=== PATIENT | female | born 1975 | race Caucasian/White ===

== ENCOUNTER 2017-10-18 21:56 | Observation (INO) | payer BC ==
--- NOTE | 2017-10-19 | EKG REPORT ---
SEVERITY:- BORDERLINE ECG - SINUS RHYTHM PROBABLE LEFT ATRIAL ABNORMALITY BORDERLINE INFERIOR Q WAVES : Confirmed by: Carlene Iyer 18-Oct-2017 23:59:47
[2017-10-19] MEDS ORDERED: ASPIRIN 81 MG TABLET, CHEWABLE PO ONE (00:17)
--- NOTE | 2017-10-19 00:20 | ER Document Report ---
ED Medical Screen (RME) - General Chief Complaint: Chest Pain Stated Complaint: CHEST PAIN Time Seen by Provider: 10/19/17 00:16 Mode of Arrival: Ambulatory Information source: Patient Notes: 42-year-old female presents to ED for sore throat cough and shortness of breath and chest pain. She states she has had a cold for a few days today she felt like her throat was closing up. She was having trouble breathing and having chest pain up to her left side of her chest up into her throat and jaw. She states she had a AR last year and had a heart cath. She states she was told she had a slight blockage but that the main problem was her arteries were spasming causing a clot. She was seen in our ER and sent to [facility] where she had a heart cath. I have greeted and performed a rapid initial assessment of this patient. A comprehensive ED assessment and evaluation of the patient, analysis of test results and completion of medical decision making process will be conducted by an additional ED providers. TRAVEL OUTSIDE OF THE [place] IN LAST 30 DAYS: No - Related Data Allergies/Adverse Reactions: morphine [Morphine] Adverse Reaction (Verified 09/15/16 13:51) Past Medical History - Past Medical History Cardiac Medical History: Reports: Hx Hypercholesterolemia Pulmonary Medical History: Reports: Hx Asthma Neurological Medical History: Reports: Hx Migraine Endocrine Medical History: Reports: Hx Diabetes Mellitus Type 2 - borderline, pre- Renal/ Medical History: Reports: Hx Kidney Stones Past Surgical History: Reports: Hx Appendectomy - 2009, Hx Cholecystectomy - 1999, Hx Nose Surgery - age 16 (sinus), Hx Tubal Ligation - 1999 - Immunizations Hx Diphtheria, Pertussis, Tetanus Vaccination: Yes Physical Exam - Vital signs Vitals: Temp Pulse Resp BP Pulse Ox 98.2 F 80 16 154/78 H 100 10/18/17 22:26 10/18/17 22:26 10/18/17 22:26 10/18/17 22:26 10/18/17 22:26 Course - Vital Signs Vital signs: Temp Pulse Resp BP Pulse Ox 98.2 F 80 16 154/78 H 100 10/18/17 22:26 10/18/17 22:26 10/18/17 22:26 10/18/17 22:26 10/18/17 22:26
--- NOTE | 2017-10-19 00:59 | ER Document Report ---
ED General - General Chief Complaint: Chest Pain Stated Complaint: CHEST PAIN Time Seen by Provider: 10/19/17 00:16 Mode of Arrival: Ambulatory Notes: Patient is a 42-year-old female presents with complaint of chest tightness. Patient says over last 2 days she has had some runny nose cough and congestion. She says that today she suddenly started having a sensation of tightness at the base of her throat and felt as if she was having hard time getting air through her throat. She also had some chest tightness going into her left arm. She said she had somewhat similar symptoms a year ago when she had an [place]. Her troponins at that time were elevated and she was sent to [facility]. There they did a heart catheterization which showed that she was having coronary vasospasm. She did not require stenting at that time. She is currently on isosorbide. She says that she did run out of it earlier in the week. She says she got the prescription refilled about 2 days ago and has been taking at the last 2 days. She denies any fevers or infections. She said when her symptoms did occur earlier today her blood pressure was elevated but her blood pressure has improved now. She has no other complaints at this time. She says that she is supposed to be followed by the clinical sciences professor at [facility] but she has not seen seeing them in last several months. She says she did follow-up with them a few times after her hospitalization last year but this did not make her recent appointment that she was supposed to make. TRAVEL OUTSIDE OF THE [place] IN LAST 30 DAYS: No - Related Data Allergies/Adverse Reactions: morphine [Morphine] Adverse Reaction (Verified 09/15/16 13:51) Past Medical History - General Information source: Patient - Social History Smoking Status: Former Smoker Frequency of alcohol use: None Drug Abuse: None Family History: Reviewed & Not Pertinent, CAD - grandmother- [place] at age 40 Patient has suicidal ideation: No Patient has homicidal ideation: No - Past Medical History Cardiac Medical History: Reports: Hx Hypercholesterolemia Pulmonary Medical History: Reports: Hx Asthma Neurological Medical History: Reports: Hx Migraine Endocrine Medical History: Reports: Hx Diabetes Mellitus Type 2 - borderline, pre- Renal/ Medical History: Reports: Hx Kidney Stones. Denies: Hx Peritoneal Dialysis Past Surgical History: Reports: Hx Appendectomy - 2009, Hx Cholecystectomy - 2000, Hx Nose Surgery - age 16 (sinus), Hx Tubal Ligation - 2000 - Immunizations Hx Diphtheria, Pertussis, Tetanus Vaccination: Yes Review of Systems - Review of Systems Notes: My Normal Review Basic REVIEW OF SYSTEMS: CONSTITUTIONAL : Denies fever, chills, or sweats. Denies recent illness. EENT: Sensation of tightness in throat. CARDIOVASCULAR: Chest tightness radiating down left arm. RESPIRATORY: Denies cough, cold, or chest congestion. Denies shortness of breath, difficulty breathing, or wheezing. GASTROINTESTINAL: Denies abdominal pain. Denies nausea, vomiting, or diarrhea. Denies constipation. Last BM: MUSCULOSKELETAL: Denies neck or back pain or joint pain or swelling. SKIN: Denies rash or skin lesions. NEUROLOGICAL: Denies altered mental status or loss of consciousness. Denies headache. Denies weakness or paralysis or loss of use of either side. Denies problems with gait or speech. Denies sensory or motor loss. ALL OTHER SYSTEMS REVIEWED AND NEGATIVE. Physical Exam - Vital signs Vitals: Temp Pulse Resp BP Pulse Ox 98.2 F 80 16 154/78 H 100 10/18/17 22:26 10/18/17 22:26 10/18/17 22:26 10/18/17 22:26 10/18/17 22:26 - Notes Notes: General Appearance: Well nourished, alert, cooperative, no acute distress, no obvious discomfort. Well-appearing. Vitals: reviewed, See vital signs table. Head: no swelling or tenderness to the head Eyes: PERRL, EOMI, Conjuctiva clear Mouth: No decreasd moisture Throat: Normal-appearing pharynx on exam. Neck: Supple, no neck tenderness, Lungs: No wheezing, No rales, No rhonci, No accessory muscle use, good air exchange bilaterally. Heart: Normal rate, Regular rythm, No murmur, no rub Abdomen: Normal BS, soft, No rigidity, No abdominal tenderness, No guarding, no rebound, no abdominal masses, no organomegaly Extremities: strength 5/5 in all extremities, good pulses in all extremities, no swelling or tenderness in the extremities, no edema. Skin: warm, dry, appropriate color, no rash Neuro: speech clear, oriented x 3, normal affect, responds appropriately to questions. Course - Re-evaluation Re-evalutation: 10/19/17 04:16 Patient's chest pain did resolve with the Nitropaste. I ordered a repeat troponin and took off the Nitropaste to see if she would have recurrence chest pain. Patient now started having recurrence of her chest pain. I will do repeat EKG and reapply the Nitropaste. Repeat troponin is pending. 10/19/17 04:47 Patient is now started feel better again after reapplying the Nitropaste. I did speak with the hospitalist requested this case case with clinical sciences professor. I did speak with Dr. Rodriguez who recommends we give the patient 2.5 mg of [address] and place her on a low-dose Cardizem drip. I have ordered this. I did inform Dr. Bryant of the clinical sciences professor recommendations. We will admit the patient for observation. My concern of course is that even though she does have some cold- like symptoms I suspect that the chest tightness difficulty breathing and tightness going down her arm most likely is related to coronary vessel spasm being that she had the same symptoms a year ago and also that her symptoms are improved with the nitro. At this time she has no signs of infarction; however, my concern is if we sent her home without Nitropaste and her symptoms progress she would have infarction like she did 1 year ago. I did explain the plan with the patient and she is agreeable to staying. Dictation of this chart was performed using voice recognition software; therefore, there may be some unintended grammatical errors. - Vital Signs Vital signs: Temp Pulse Resp BP Pulse Ox 98.2 F 80 12 98/62 L 98 10/18/17 22:26 10/18/17 22:26 10/19/17 03:01 10/19/17 03:00 10/19/17 03:01 - Laboratory Result Diagrams: 10/19/17 00:50 10/19/17 00:50 Laboratory results interpreted by me: 10/19/17 10/19/17 00:50 00:50 WBC 11.0 H Seg Neutrophils % 81.1 H Absolute Neutrophils 8.9 H Glucose 123 H - EKG Interpretation by Me Additional EKG results interpreted by me: 10/19/17 00:58 EKG is reviewed and interpreted by me. EKG shows sinus rhythm with rate [address] segment elevation or depression. No ischemic T-wave inversions. AR interval, QRS duration, QTc intervals are within normal range. No old EKG available for comparison. 10/19/17 01:31 10/19/17 04:27 EKG #2 is reviewed and interpreted by me. EKG shows sinus rhythm with rate [address] segment elevation or depression. No ischemic T-wave inversions. AR interval, QRS duration, QTc intervals are within normal range. Discharge - Discharge Clinical Impression: Chest pain Qualifiers: Chest pain type: unspecified Qualified Code(s): R07.9 - Chest pain, unspecified Condition: Stable Disposition: ADMITTED OBSERVATION Admitting Provider: Hospitalist
[2017-10-19 01:10] LABS: ABSOLUTE BASOPHILS # (AUTO) 0.1 10^3/uL (0.0-0.2); ABSOLUTE EOSINOPHILS # (AUTO) 0.1 10^3/uL (0.0-0.6); ABSOLUTE LYMPHOCYTES (AUTO) 1.5 10^3/uL (0.5-4.7); ABSOLUTE MONOCYTES (AUTO) 0.5 10^3/uL (0.1-1.4); ABSOLUTE NEUT (AUTO) 8.9 10^3/uL (1.7-8.2); BASOPHILS % (AUTO) 0.5 % (0-2); EOSINOPHILS % (AUTO) 0.7 % (0-6); HEMATOCRIT 40.2 % (36.0-47.0); HEMOGLOBIN 13.6 g/dL (12.0-15.5); HGB HCT DIFFERENCE 0.6; LYMPHOCYTES % (AUTO) 13.3 % (13-45); MEAN CORPUSCULAR HGB CONC 33.8 g/dL (32.0-36.0); MEAN CORPUSCULAR VOLUME 89 fl (80-97); MONOCYTES % (AUTO) 4.4 % (3-13); RED BLOOD COUNT 4.54 10^6/uL (3.72-5.28); RED CELL DISTRIBUTION WIDTH 13.5 % (11.5-14.0); SEGMENTED NEUTROPHILS % (AUTO) 81.1 % (42-78)
[2017-10-19] MEDS ORDERED: NITROGLYCERIN 2% OINTMENT 1 GM PACKET TP ONE ×2 (01:27→04:12)
[2017-10-19 01:41] LABS: ALANINE AMINOTRANSFERASE 35 U/L (9-52); ALBUMIN 4.5 g/dL (3.5-5.0); ALKALINE PHOSPHATASE 97 U/L (38-126); ANION GAP 14 (5-19); ASPARTATE AMINO TRANSFERASE 30 U/L (14-36); BILIRUBIN,DIRECT 0.4 mg/dL (0.0-0.4); BILIRUBIN,TOTAL 0.5 mg/dL (0.2-1.3); BLOOD UREA NITROGEN 11 mg/dL (7-20); CALCIUM 10.1 mg/dL (8.4-10.2); CARBON DIOXIDE 26 mmol/L (22-30); CHLORIDE 103 mmol/L (98-107); CREATINE KINASE 94 U/L (30-135); CREATININE RESULT 0.76 mg/dL (0.52-1.25); GLUCOSE 123 mg/dL (75-110); POTASSIUM 4.2 mmol/L (3.6-5.0); SODIUM 142.6 mmol/L (137-145); TOTAL PROTEIN 7.4 g/dL (6.3-8.2)
--- NOTE | 2017-10-19 01:41 | RADIOLOGY REPORT (SQ) ---
EXAM DESCRIPTION: CHEST PA/LAT CLINICAL HISTORY: 42 years, Female, chest pain cough hx of [place] year ago COMPARISON: None. NUMBER OF VIEWS: 2. TECHNIQUE: PA and lateral. LIMITATIONS: None. FINDINGS: Adequate lung volumes, clear parenchyma, normal cardiac silhouette. Intact bony thorax. Right upper abdominal clips. IMPRESSION: No acute cardiopulmonary findings. 2011 [employer]- All Rights Reserved
[2017-10-19 01:51] LABS: CREATINE KINASE MB 0.97 ng/mL (<4.55)
[2017-10-19 02:00] LABS: TROPONIN I < 0.012 ng/mL
[2017-10-19] MEDS ORDERED: MAG HYDROX/AL HYDROX/SIMETH SUSP 30 ML UDCUP PO PRN (04:44)
[2017-10-19] MEDS ORDERED: DILTIAZEM HCL INJ 25 MG/5 ML VIAL IV ONE (04:44)
[2017-10-19] MEDS ORDERED: DILTIAZEM HCL/D5W 125 MG/125 ML RTUINJ IV PRN (05:07)
[2017-10-19 05:31] LABS: CHOLESTEROL 193.17 mg/dL (0-200); CREATINE KINASE 83 U/L (30-135); Direct HDL 70 mg/dL (>40); TRIGLYCERIDES 56 mg/dL (<150)
[2017-10-19 05:42] LABS: DIRECT LDL 108 mg/dL (<100)
[2017-10-19 05:43] LABS: CREATINE KINASE MB 0.87 ng/mL (<4.55)
[2017-10-19 05:51] LABS: TROPONIN I < 0.012 ng/mL
[2017-10-19] MEDS ORDERED: CALCIUM CARBONATE 500 MG TAB.CHEW PO PRN (06:41)
--- NOTE | 2017-10-19 06:56 | PDOC H&P ---
History of Present Illness Admission Date/PCP: 10/19/17 04:59 Patient complains of: Chest pain History of Present Illness: ANIBAL DURAN is a 42 year old female with a past medical history of prediabetes, chronic back pain, allergic sinusitis and coronary vasospasm with negative cardiac catheterization 1 year ago. Patient presents with 4 hours of chest tightness radiating to the neck throat and left arm which reminded her of symptoms from a non-ST elevation [place] from coronary vasospasm 1 year ago, which prompts evaluation in the emergency room where she is found to have chest pain alleviated by Nitropaste. Her pain was 3 out of 5 intensity occurring at rest, dull in nature radiating to the neck and left arm associated with palpitations without nausea vomiting or diaphoresis. She denies exacerbating factors, alleviated by Nitropaste. Patient admits change from Zyrtec to Nimco today. In the emergency room she has an unremarkable workup EKG is unchanged, Nitropaste removal results in return of chest pain. Cardiology is consulted recommending addition of IV Cardizem. She is referred to the hospitalist for observation. Past Medical History Cardiac Medical History: Reports: Hyperlipidema, Other - Coronary artery vasospasm Pulmonary Medical History: Reports: Asthma Neurological Medical History: Reports: Migraine Endocrine Medical History: Reports: Diabetes Mellitus Type 2 - borderline, pre- GI Medical History: Reports: Gastroesophageal Reflux Disease Psychiatric Medical History: Denies: Alcohol Dependency, Bipolar Disorder, Depression, Tobacco Dependency Past Surgical History Past Surgical History: Reports: Appendectomy - 2009, Cardiac Catheterization, Cholecystectomy - 1999, Tubal Ligation - 1999 Social History Information Source: Patient Smoking Status: Former Smoker Frequency of Alcohol Use: None Hx Recreational Drug Use: No Drugs: None - Advance Directive Resuscitation Status: Full Code Family History Family History: CAD - grandmother- [place] at age 40 Parental Family History Reviewed: Yes Children Family History Reviewed: Yes Sibling(s) Family History Reviewed.: Yes Medication/Allergy Home Medications: Hydrocodone/Acetaminophen [[place] 5-325 mg Tablet] 1 tab PO Q4HP PRN #12 tablet 06/02/16 Phenazopyridine HCl [Pyridium 200 mg Tablet] 200 mg PO TID #15 tablet 06/02/16 Oxycodone HCl/Acetaminophen [Percocet 5-325 mg Tablet] 1 - 2 tab PO Q4H PRN #15 tablet 07/17/16 Allergies/Adverse Reactions: morphine [Morphine] Adverse Reaction (Verified 09/15/16 13:51) Review of Systems Constitutional: ABSENT: chills, fever(s), headache(s), weight gain, weight loss Eyes: ABSENT: visual disturbances Ears: ABSENT: hearing changes Cardiovascular: ABSENT: chest pain, dyspnea on exertion, edema, orthropnea, palpitations Respiratory: ABSENT: cough, hemoptysis Gastrointestinal: ABSENT: abdominal pain, constipation, diarrhea, hematemesis, hematochezia, nausea, vomiting Genitourinary: ABSENT: dysuria, hematuria Musculoskeletal: ABSENT: joint swelling Integumentary: ABSENT: rash, wounds Neurological: ABSENT: abnormal gait, abnormal speech, confusion, dizziness, focal weakness, syncope Psychiatric: ABSENT: anxiety, depression, homidical ideation, suicidal ideation Endocrine: ABSENT: cold intolerance, heat intolerance, polydipsia, polyuria Hematologic/Lymphatic: ABSENT: easy bleeding, easy bruising Physical Exam Vital Signs: Temp Pulse Resp BP Pulse Ox 98.2 F 80 11 L 105/67 96 10/18/17 22:26 10/18/17 22:26 10/19/17 06:15 10/19/17 06:15 10/19/17 06:15 General appearance: PRESENT: no acute distress, well-developed, well-nourished Head exam: PRESENT: atraumatic, normocephalic Eye exam: PRESENT: conjunctiva pink, EOMI, PERRLA. ABSENT: scleral icterus Ear exam: PRESENT: normal external ear exam Mouth exam: PRESENT: moist, tongue midline Neck exam: ABSENT: carotid bruit, JVD, lymphadenopathy, thyromegaly Respiratory exam: PRESENT: clear to auscultation romario. ABSENT: rales, rhonchi, wheezes Cardiovascular exam: PRESENT: RRR. ABSENT: diastolic murmur, rubs, systolic murmur Pulses: PRESENT: normal dorsalis pedis pul Vascular exam: PRESENT: normal capillary refill GI/Abdominal exam: PRESENT: normal bowel sounds, soft. ABSENT: distended, guarding, mass, organolmegaly, rebound, tenderness Rectal exam: PRESENT: deferred Extremities exam: PRESENT: full ROM. ABSENT: calf tenderness, clubbing, pedal edema Neurological exam: PRESENT: alert, awake, oriented to person, oriented to place , oriented to time, oriented to situation, CN II-XII grossly intact. ABSENT: motor sensory deficit Psychiatric exam: PRESENT: appropriate affect, normal mood. ABSENT: homicidal ideation, suicidal ideation Skin exam: PRESENT: dry, intact, warm. ABSENT: cyanosis, rash Results Laboratory Results: 10/19/17 05:00 Triglycerides 56 Cholesterol 193.17 LDL Cholesterol Direct 108 H VLDL Cholesterol 11.0 HDL Cholesterol 70 10/19/17 10/19/17 05:00 05:00 Creatine Kinase 83 CK-MB (CK-2) 0.87 Troponin I < 0.012 Impressions: Chest X-Ray 10/19/17 00:17 IMPRESSION: No acute cardiopulmonary findings. 2010 [employer]- All Rights Reserved Assessment & Plan - Diagnosis (1) Coronary vasospasm Is this a current diagnosis for this admission?: Yes Plan: Telemetry observation, cardiology consultation, Nitropaste and IV Cardizem. Follow-up cardiac enzymes (2) Allergic sinusitis Is this a current diagnosis for this admission?: Yes Plan: Given history of Nimco substitution for Zyrtec today and recurrent onset of vasospasm avoidance of Nimco, Flonase ordered (3) GERD (gastroesophageal reflux disease) Is this a current diagnosis for this admission?: Yes Plan: Calcium carbonate as needed follow-up cardiac enzymes (4) Chest pain Qualifiers: Chest pain type: unspecified Qualified Code(s): R07.9 - Chest pain, unspecified Is this a current diagnosis for this admission?: Yes Plan: Recent negative cardiac catheterization, continue treatment for #1 and cardiology consult. - Time Time Spent: 50 to 70 Minutes - Inpatient Certification Medical Necessity: Need Close Monitoring Due to Risk of Patient Decompensation
--- NOTE | 2017-10-19 07:11 | EKG REPORT ---
SEVERITY:- ABNORMAL ECG - SINUS RHYTHM PROBABLE LEFT ATRIAL ABNORMALITY PROBABLE INFERIOR INFARCT, AGE INDETERMINATE : Confirmed by: Carlene Iyer 19-Oct-2017 17:41:22
--- NOTE | 2017-10-19 07:13 | EKG REPORT ---
SEVERITY:- ABNORMAL ECG - SINUS TACHYCARDIA PROBABLE LEFT ATRIAL ABNORMALITY PROBABLE INFERIOR INFARCT, AGE INDETERMINATE : Confirmed by: Carlene Iyer 19-Oct-2017 17:41:50
[2017-10-19] MEDS: DOCUSATE SODIUM 100 MG CAPSULE PO SCH ×2 (10:57→19:01)
[2017-10-19] MEDS: FLUTICASONE NASAL SPRAY 50 MCG/SPRY 120 SPRAY/16 GM NASL SCH ×2 (10:58→22:55)
[2017-10-19 12:05] LABS: CREATINE KINASE MB 0.72 ng/mL (<4.55)
[2017-10-19 12:08] LABS: TROPONIN I < 0.012 ng/mL
--- NOTE | 2017-10-19 13:52 | PDOC PROGRESS REPORT ---
Subjective Progress Note for:: 10/19/17 Subjective:: Patient denies having any further chest pain. Reason For Visit: CHEST PAIN, CORONARY VASOSPASM Physical Exam Vital Signs: Temp Pulse Resp BP Pulse Ox 98.2 F 80 14 115/78 97 10/18/17 22:26 10/18/17 22:26 10/19/17 09:26 10/19/17 09:26 10/19/17 09:26 General appearance: PRESENT: no acute distress Eye exam: PRESENT: conjunctiva pink. ABSENT: scleral icterus Mouth exam: PRESENT: moist, tongue midline Neck exam: ABSENT: JVD Respiratory exam: PRESENT: clear to auscultation romario. ABSENT: rales, rhonchi, wheezes Cardiovascular exam: PRESENT: RRR. ABSENT: diastolic murmur, rubs, systolic murmur GI/Abdominal exam: PRESENT: normal bowel sounds, soft. ABSENT: distended, guarding, mass, organolmegaly, rebound, tenderness Extremities exam: ABSENT: calf tenderness, clubbing, pedal edema Neurological exam: PRESENT: alert, awake, oriented to person, oriented to place , oriented to time, oriented to situation, CN II-XII grossly intact. ABSENT: motor sensory deficit Psychiatric exam: PRESENT: appropriate affect Skin exam: PRESENT: dry, intact, warm. ABSENT: cyanosis, rash Results Laboratory Results: 10/19/17 05:00 Triglycerides 56 Cholesterol 193.17 LDL Cholesterol Direct 108 H VLDL Cholesterol 11.0 HDL Cholesterol 70 10/19/17 10/19/17 10/19/17 05:00 05:00 11:27 Creatine Kinase 83 CK-MB (CK-2) 0.87 0.72 Troponin I < 0.012 < 0.012 Impressions: Chest X-Ray 10/19/17 00:17 IMPRESSION: No acute cardiopulmonary findings. 2010 [employer]- All Rights Reserved Assessment & Plan - Diagnosis (1) Chest pain Qualifiers: Chest pain type: unspecified Qualified Code(s): R07.9 - Chest pain, unspecified Is this a current diagnosis for this admission?: Yes Plan: We will order a stress test. She has a history of a normal cardiac catheterization with probable vasospasm the cause for her chest pain previously. (2) GERD (gastroesophageal reflux disease) Is this a current diagnosis for this admission?: Yes - Time Time Spent with patient: 15-24 minutes - Plan Summary Plan Summary: We will obtain a stress test.
[2017-10-19 18:05] LABS: CREATINE KINASE MB 0.56 ng/mL (<4.55)
[2017-10-19 18:09] LABS: TROPONIN I < 0.012 ng/mL
[2017-10-19] MEDS ORDERED: LIDOCAINE 2% VISCOUS SOLN 20 ML UDCUP PO ONE (19:28)
[2017-10-19] MEDS ORDERED: MAG HYDROX/AL HYDROX/SIMETH SUSP 30 ML UDCUP PO ONE (19:28)
[2017-10-19] MEDS ORDERED: METOCLOPRAMIDE HCL ORAL SOLN 10 MG/10 ML UDCUP PO ONE (19:28)
[2017-10-19] MEDS ORDERED: ATORVASTATIN CALCIUM 80 MG TABLET PO SCH (22:00)
[2017-10-20] MEDS ORDERED: INFLUENZA ADLT QUAD (36MOS+) 2017-18 VAC 0.5 ML SYR IM PRN (00:30)
[2017-10-20 06:08] LABS: CHOLESTEROL 191.56 mg/dL (0-200); CREATINE KINASE 68 U/L (30-135); Direct HDL 65 mg/dL (>40); TRIGLYCERIDES 73 mg/dL (<150)
[2017-10-20 06:19] LABS: DIRECT LDL 97 mg/dL (<100)
--- NOTE | 2017-10-20 09:10 | EKG REPORT ---
SEVERITY:- ABNORMAL ECG - SINUS RHYTHM PROBABLE INFERIOR INFARCT, OLD : Confirmed by: Carlene Iyer 20-Oct-2017 09:09:31
[2017-10-20] MEDS ORDERED: LORAZEPAM 1 MG TABLET PO ONE (09:30)
[2017-10-20] MEDS: FLUTICASONE NASAL SPRAY 50 MCG/SPRY 120 SPRAY/16 GM NASL SCH (09:45)
[2017-10-20] MEDS: DOCUSATE SODIUM 100 MG CAPSULE PO SCH (09:51)
[2017-10-20 11:37] VITALS: BP 121/78
--- NOTE | 2017-10-20 15:19 | PDOC DISCHARGE SUMMARY ---
General - Admit/Disc Date/PCP Admission Date/Primary Care Provider: 10/19/17 04:59 Discharge Date: 10/20/17 - Discharge Diagnosis (1) Chest pain Is this a current diagnosis for this admission?: Yes Summary: Most likely secondary to acid reflux and anxiety. (2) GERD (gastroesophageal reflux disease) Is this a current diagnosis for this admission?: Yes Summary: Patient is started on Prilosec. - Additional Information Resuscitation Status: Full Code Discharge Diet: Cardiac Discharge Activity: Activity As Tolerated Home Medications: Aspirin [Aspirin EC] 81 mg PO DAILY 10/19/17 Baclofen [Baclofen 20 mg Tablet] 20 mg PO TID 10/19/17 Cetirizine HCl [Zyrtec] 10 mg PO DAILY 10/19/17 Isosorbide Mononitrate [Imdur 30 mg Tablet.er] 30 mg PO DAILY 10/19/17 Amlodipine Besylate [Norvasc 5 mg Tablet] 5 mg PO DAILY #30 tablet 10/20/17 Flu Vacc [id number] [id number] Up/Pf [Fluzone Adlt Quad [id number] Vac 0.5 ml Syr] 0.5 ml IM .DISCHARGE PRN disp.syrin 10/20/17 Lorazepam [Ativan 1 mg Tablet] 1 mg PO Q4 PRN #14 tab 10/20/17 Omeprazole Magnesium [Prilosec Otc] 20 mg PO DAILY #30 tablet. 10/20/17 History of Present Illness History of Present Illness: ANIBAL DURAN is a 42 year old female who has a history of coronary vasospasm with a unremarkable cardiac catheterization 1 year ago who presented with a 4 hour history of chest pain. The patient had vasospasm 1 year ago that resulted in a non-STEMI. The patient reported that the pain occurred in her chest when of her left. Patient also did report that was made worse when she ate. She also has been very anxious. Patient was started on Cardizem in the emergency room and was admitted. Hospital Course Hospital Course: 42-year-old female with history of cardiac catheterization that was unremarkable 1 year ago and in the past and suffered from a non-STEMI secondary to coronary vasospasm who presented with chest pain. The patient was monitored on telemetry and had no cardiac arrhythmias. The patient had negative cardiac enzymes. The patient was initially started on a Cardizem drip and this was eventually stopped. The patient did report that she has been having worsening acid reflux symptoms and that occasionally when she gets the pain she also has a sour brash taste. She also has been anxious. She was given Ativan and had improvement in her chest discomfort. Is felt this most likely represent combination of acid reflux and anxiety as the cause for her chest pain. She will be sent home with Ativan and Prilosec. If she continues to have symptoms she can follow-up with her carroting machine offbearer as an outpatient to see if she needs a stress test. Given the fact that she had a negative cardiac cath this year ago it is unlikely that a stress test would be very helpful. Physical Exam Vital Signs: Temp Pulse Resp BP Pulse Ox 98.0 F 83 18 121/78 100 10/20/17 11:35 10/20/17 11:35 10/20/17 11:35 10/20/17 11:35 10/20/17 11:35 Intake & Output 10/19/17 10/20/17 10/21/17 06:59 06:59 06:59 Intake Total 25 Output Total 100 Balance -75 Weight 77.6 kg General appearance: PRESENT: no acute distress Eye exam: PRESENT: conjunctiva pink. ABSENT: scleral icterus Mouth exam: PRESENT: moist, tongue midline Neck exam: ABSENT: JVD Respiratory exam: PRESENT: clear to auscultation romario. ABSENT: rales, rhonchi, wheezes Cardiovascular exam: PRESENT: RRR. ABSENT: diastolic murmur, rubs, systolic murmur GI/Abdominal exam: PRESENT: normal bowel sounds, soft. ABSENT: distended, guarding, mass, organolmegaly, rebound, tenderness Extremities exam: ABSENT: calf tenderness, clubbing, pedal edema Neurological exam: PRESENT: alert, awake, oriented to person, oriented to place , oriented to time, oriented to situation, CN II-XII grossly intact. ABSENT: motor sensory deficit Psychiatric exam: PRESENT: appropriate affect Skin exam: PRESENT: dry, intact, warm. ABSENT: cyanosis, rash Results Laboratory Results: 10/20/17 05:20 Triglycerides 73 Cholesterol 191.56 LDL Cholesterol Direct 97 VLDL Cholesterol 15.0 HDL Cholesterol 65 10/19/17 10/19/17 10/19/17 05:00 05:00 11:27 Creatine Kinase 83 CK-MB (CK-2) 0.87 0.72 Troponin I < 0.012 < 0.012 10/19/17 10/20/17 17:35 05:20 Creatine Kinase 68 CK-MB (CK-2) 0.56 Troponin I < 0.012 Impressions: Chest X-Ray 10/19/17 00:17 IMPRESSION: No acute cardiopulmonary findings. 2010 [employer]- All Rights Reserved Qualifiers PATEINT BEING DISCHARGED WITH ANY OF THE FOLLOWING DIAGNOSIS?: No Plan Discharge Plan: Patient is discharged home in stable condition. Follow-up with carroting machine offbearer in 1-2 weeks per Time Spent: Greater than 30 Minutes
== END 2017-10-20 12:25 | disposition home or self-care (01) ==
LOC: ER 21:56 → EH 10-19 04:59 → 3W 10-19 21:15
PROVIDERS: ADMIT Internal Medicine; ATTEND Internal Medicine
DX: R07.9 Chest pain, unspecified (principal); K21.9 Gastro-esophageal reflux disease without esophagitis; F41.9 Anxiety disorder, unspecified; J30.9 Allergic rhinitis, unspecified; I20.1 Angina pectoris with documented spasm; J02.9 Acute pharyngitis, unspecified; R05 Cough; R06.02 Shortness of breath; I25.2 Old myocardial infarction; Z79.82 Long term (current) use of aspirin; Z79.899 Other long term (current) drug therapy; Z90.49 Acquired absence of other specified parts of digestive tract; Z87.891 Personal history of nicotine dependence; Z82.49 Family history of ischemic heart disease and other diseases of the circulatory system; Z98.890 Other specified postprocedural states
CPT/HCPCS: 93005 ×4; 99285; 36415 ×2; 87070; 82553; 87880; 82550 ×2; 84703; 85025; 80053; 84484; 80061 ×2; 71020; 93010 ×3; G0378 ×3; J3490 ×4

== ENCOUNTER → 2018-02-24 | Outpatient (CLI) | payer BC ==
--- NOTE | 2018-02-24 13:26 | WOMENS IMAGING REPORT ---
EXAM DESCRIPTION: 3D SCREENING MAMMO BILAT COMPLETED DATE/TIME: 02/24/2018 10:27 am REASON FOR STUDY: ROUTINE SCREENING;Z12.31 Z12.31 ENCNTR SCREEN MAMMOGRAM FOR MALIGNANT NEOPLASM OF CARMELO COMPARISON: Multiple since 2011 TECHNIQUE: Standard craniocaudal and mediolateral oblique views of each breast recorded using digita l acquisition and breast tomosynthesis. LIMITATIONS: None. FINDINGS: No masses, calcifications or architectural distortion. No areas of suspicion. Read with the assistance of CAD. .[facility] - R2 Cenova Version 1.3 .[facility] - R2 Cenova Version 1.3 .[facility] - R2 Cenova Version 2.4 .[facility] - R2 Cenova Version 2.4 .[facility] - R2 Edge Cutter Version 9.2 IMPRESSION: NORMAL MAMMOGRAM. BIRADS 1. BREAST DENSITY: b. There are scattered areas of fibroglandular density. BIRAD: 1 NEGATIVE RECOMMENDATION: ROUTINE SCREENING Please continue bilateral screening tomosynthesis in February 2019 COMMENT: The patient has been notified of the results by letter per SA requirements. Additional no tification policies are in place for contacting patient with suspicious or incomplete findings. Quality ID #[id number]: The [employer] [place] [employer] recommends an annual screening mammogram for women aged 40 years or over. This facility utilizes a reminder system to ensure that all patients receive reminder letters, and/or direct phone calls for appointments. This includes reminders for routine scr eening mammograms, diagnostic mammograms, or other Breast Imaging Interventions when appropriate. Th is patient will be placed in the appropriate reminder system. The [employer] [place] [employer] (ACR) has developed recommendations for screening MRI of the breast s in certain patient populations, to be used in conjunction with mammography. Breast MRI surveillanc e may be appropriate for women with more than 20% lifetime risk of developing breast cancer as deter mined by genetic testing, significant family history of the disease, or history of mantle radiation f or Hodgkins Disease. ACR Practice Guidelines 2008. DBT Technology DBT is a type of tomographic mammography. With conventional mammography, overlapping breast tissue ma y make lesions difficult to detect, even with good compression. DBT uses an x-ray tube that rotates a round the breast, taking images at different angles. These images are then combined to create thin sl ices of the breast that the radiologist can view as a 3D reconstruction. The [employer] unit can perform full-field digital mammograms (2D imaging); or DBT (3D imaging); or both, in a combination mode that quickly performs both the mammogram and the tomosynthesis scan while the breast is still compressed. PQRS 6045F: Fluoroscopic imaging is not utilized for breast tomosynthesis. TECHNICAL DOCUMENTATION: FINDING NUMBER: (1) ASSESSMENT: (1) JOB ID: [id number] [employer]- All Rights Reserved Reading location - IP/workstation name: [email or web address]
== END ==
LOC: WI 10:05
PROVIDERS: ATTEND Nurse Practitioner
DX: Z12.31 Encounter for screening mammogram for malignant neoplasm of breast (principal)
CPT/HCPCS: 77063; 77067

== ENCOUNTER 2018-12-13 09:59 | Emergency (ER) | payer BC ==
[2018-12-13] MEDS ORDERED: ONDANSETRON 4 MG TAB.RAPDIS PO ONE (10:19)
[2018-12-13] MEDS ORDERED: KETOROLAC TROMETHAMINE 60 MG/2 ML SDV IM ONE (10:22)
--- NOTE | 2018-12-13 10:23 | ER Document Report ---
ED Medical Screen (RME) - General Chief Complaint: Flank Pain Stated Complaint: FLANK/ABDOMINAL PAIN Time Seen by Provider: 12/13/18 10:14 Primary Care Provider: QUINCY LESTER FNP [Primary Care Provider] - Follow up as needed Mode of Arrival: Ambulatory Information source: Patient Notes: 43-year-old female presents emergency department complaints of left lower q uadrant pain with radiation into the left flank and down into the left leg. She describes it as a sharp and stabbing sensation that is been intermittent over the last few days. She states that it is alleviated slightly with urination. She denies any exacerbating factors. She is having associated urgency, frequency, nausea. Patient states that she has had her gallbladder removed as well as an appendectomy. I have greeted and performed a rapid initial assessment of this patient. A comprehensive ED assessment and evaluation of the patient, analysis of test results and completion of the medical decision making process will be conducted by additional ED providers. PHYSICAL EXAMINATION: GENERAL: Well-appearing, well-nourished and in no acute distress. HEAD: Atraumatic, normocephalic. EYES: Pupils equal round extraocular movements intact, conjunctiva are normal. ENT: Nares patent NECK: Normal range of motion LUNGS: No respiratory distress Musculoskeletal: Normal range of motion NEUROLOGICAL: Normal speech, normal gait. PSYCH: Normal mood, normal affect. SKIN: Warm, Dry, normal turgor, no rashes or lesions noted. TRAVEL OUTSIDE OF THE [place] 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 Denies: Hx Peritoneal Dialysis GI Medical History: Reports: Hx Gastroesophageal Reflux Disease Psychiatric Medical History: Denies: Hx Bipolar Disorder, Hx Depression Past Surgical History: Reports: Hx Appendectomy - 2009, Hx Cardiac Catheterization, Hx Cholecystectomy - 1999, Hx Nose Surgery - age 16 (sinus), Hx Tubal Ligation - Immunizations Hx Diphtheria, Pertussis, Tetanus Vaccination: Yes History of Influenza Vaccine for 08/2017 - 01/2018 Season: No Physical Exam - Vital signs Vitals: Temp Pulse Resp BP Pulse Ox 97.6 F 70 18 110/74 100 12/13/18 10:09 12/13/18 10:09 12/13/18 10:12/13/18 10:09 12/13/18 10:09 Course - Vital Signs Vital signs: Temp Pulse Resp BP Pulse Ox 97.6 F 70 18 110/74 100 12/13/18 10:09 12/13/18 10:09 12/13/18 10:09 12/13/18 10:09 12/13/18 10:09 Doctor's Discharge - Discharge Referrals: QUINCY LESTER FNP [Primary Care Provider] - Follow up as needed
--- NOTE | 2018-12-13 10:45 | ER Document Report ---
ED GI/ - General Chief Complaint: Flank Pain Stated Complaint: FLANK/ABDOMINAL PAIN Time Seen by Provider: 12/13/18 10:14 Primary Care Provider: QUINCY LESTER FNP [Primary Care Provider] - Follow up as needed Mode of Arrival: Ambulatory Information source: Patient TRAVEL OUTSIDE OF THE [place] IN LAST 30 DAYS: No - HPI Patient complains to provider of: Dysuria, Flank pain Onset: Other - 3-4 days Timing/Duration: Persistent, Worse Quality of pain: Achy, Fullness, Pressure Severity at maximum: Severe Severity in ED: Severe Location: Left flank Associated symptoms: Nausea, Urinary frequency Exacerbated by: Denies Relieved by: Denies Similar symptoms previously: Yes Recently seen / treated by doctor: No Notes: 12/13/18 10:43 Patient is a 43-year-old female presenting to the emergency room today because of left flank pain that is been going on for the past 3-4 days, she had a small amount of pinkish discolored discharge as it started but that has since resolved, she does report urinary frequency and nausea, history of kidney stones in the past with similar symptoms, denies vomiting or diarrhea, no fever - Related Data Allergies/Adverse Reactions: morphine [Morphine] Adverse Reaction (Verified 10/19/17 09:55) Past Medical History - General Information source: Patient - Social History Smoking Status: Unknown if Ever Smoked Family History: CAD - grandmother- [place] at age 39 Patient has suicidal ideation: No Patient has homicidal ideation: No - Past Medical History Cardiac Medical History: Reports: Hx Hypercholesterolemia Pulmonary Medical History: Reports: Hx Asthma Neurological Medical History: Reports: Hx Migraine Endocrine Medical History: Reports: Hx Diabetes Mellitus Type 2 - borderline, pre- Renal/ Medical History: Reports: Hx Kidney Stones. Denies: Hx Peritoneal Dialysis GI Medical History: Reports: Hx Gastroesophageal Reflux Disease Psychiatric Medical History: Denies: Hx Bipolar Disorder, Hx Depression Past Surgical History: Reports: Hx Appendectomy - 2009, Hx Cardiac Catheterization, Hx Cholecystectomy - 1999, Hx Nose Surgery - age 16 (sinus), Hx Tubal Ligation - Immunizations Hx Diphtheria, Pertussis, Tetanus Vaccination: Yes Review of Systems - Review of Systems Constitutional: No symptoms reported EENT: No symptoms reported Cardiovascular: No symptoms reported Respiratory: No symptoms reported Gastrointestinal: See HPI Genitourinary: See HPI Female Genitourinary: No symptoms reported Musculoskeletal: No symptoms reported Skin: No symptoms reported Hematologic/Lymphatic: No symptoms reported Neurological/Psychological: No symptoms reported -: Yes All other systems reviewed and negative Physical Exam - Vital signs Vitals: Temp Pulse Resp BP Pulse Ox 97.6 F 70 18 110/74 100 12/13/18 10:09 12/13/18 10:12/13/18 10:12/13/18 10:12/13/18 10:09 Interpretation: Normal - General General appearance: Alert, Other - Appears in pain In distress: None - HEENT Head: Normocephalic, Atraumatic Eyes: Normal Pupils: PERRL - Respiratory Respiratory status: No respiratory distress Chest status: Nontender Breath sounds: Normal Chest palpation: Normal - Cardiovascular Rhythm: Regular Heart sounds: Normal auscultation Murmur: No - Abdominal Inspection: Normal Distension: No distension Bowel sounds: Normal Tenderness: Tender - Tender to palpate in the left flank Organomegaly: No organomegaly - Back Back: Normal, CVA tenderness - Extremities General upper extremity: Normal inspection, Nontender, Normal color, Normal ROM, Normal temperature General lower extremity: Normal inspection, Nontender, Normal color, Normal ROM, Normal temperature, Normal weight bearing. No: Miguel's sign - Neurological Neuro grossly intact: Yes Cognition: Normal Orientation: AAOx4 [place] Coma Scale Eye Opening: Spontaneous [place] Coma Scale Verbal: Oriented [place] Coma Scale Motor: Obeys Commands [place] Coma Scale Total: 15 Speech: Normal Motor strength normal: LUE, RUE, LLE, RLE Sensory: Normal - Psychological Associated symptoms: Normal affect, Normal mood - Skin Skin Temperature: Warm Skin Moisture: Dry Skin Color: Normal Course - Re-evaluation Re-evalutation: 12/13/18 12:39 Lab and imaging findings discussed with patient at bedside, imaging consistent with left nephro calculus, no ureteral calculus, no other signs of any acute intra-abdominal pathology, labs are relatively unremarkable with a small times are consistent with a kidney stone, therefore patient will be given a pr escription for tramadol and instructions for follow-up, advised to return if any worsening, patient acknowledges understanding and agreement with this plan - Vital Signs Vital signs: Temp Pulse Resp BP Pulse Ox 97.6 F 70 18 110/74 100 12/13/18 10:12/13/18 10:12/13/18 10:09 12/13/18 10:09 12/13/18 10:09 - Laboratory Result Diagrams: 12/13/18 10:56 12/13/18 10:56 Laboratory results interpreted by me: 12/13/18 12/13/18 10:26 10:56 BUN 21 H Urine Blood SMALL H - Diagnostic Test Radiology reviewed: Image reviewed, Reports reviewed Discharge - Discharge Clinical Impression: Flank pain Condition: Stable Disposition: HOME, SELF-CARE Instructions: Antinausea Medication ([facility]), Oral Narcotic Medication ([facility]), Kidney Stone ([facility]) Additional Instructions: Follow up with your primary care provider in one to 2 days. Return to the emergency room immediately if symptoms worsen or any additional concerns. Prescriptions: Ondansetron [Zofran Odt 4 mg Tablet] 1 - 2 tab PO Q4H #10 tab.rapdis Tramadol HCl/Acetaminophen [Ultracet 37.5 mg/325 mg Tablet] 1 each PO Q6 #20 tablet Forms: Return to Work Referrals: QUINCY LESTER FNP [Primary Care Provider] - Follow up as needed
[2018-12-13 11:23] LABS: APPEARANCE,URINE CLEAR; BILIRUBIN,URINE NEGATIVE (NEGATIVE); COLOR,URINE COLORLESS; GLUCOSE, URINE NEGATIVE (NEGATIVE); KETONES,URINE NEGATIVE (NEGATIVE); LEUKOCYTE ESTERASE,URINE NEGATIVE (NEGATIVE); NITRITE,URINE NEGATIVE (NEGATIVE); PROTEIN,URINE NEGATIVE (NEGATIVE); URINE SPECIFIC GRAVITY 1.002; UROBILINOGEN,URINE NEGATIVE mg/dL (<2.0)
[2018-12-13 11:30] LABS: ABSOLUTE BASOPHILS # (AUTO) 0.1 10^3/uL (0.0-0.2); ABSOLUTE EOSINOPHILS # (AUTO) 0.3 10^3/uL (0.0-0.6); ABSOLUTE LYMPHOCYTES (AUTO) 1.9 10^3/uL (0.5-4.7); ABSOLUTE MONOCYTES (AUTO) 0.6 10^3/uL (0.1-1.4); ABSOLUTE NEUT (AUTO) 5.3 10^3/uL (1.7-8.2); HEMATOCRIT 40.2 % (36.0-47.0); HEMOGLOBIN 13.8 g/dL (12.0-15.5); LYMPHOCYTES % (AUTO) 22.8 % (13-45); MEAN CORPUSCULAR HEMOGLOBIN 30.9 pg (27.0-33.4); MEAN CORPUSCULAR HGB CONC 34.4 g/dL (32.0-36.0); MEAN CORPUSCULAR VOLUME 90 fl (80-97); MONOCYTES % (AUTO) 7.4 % (3-13); PLATELET COUNT 379 10^3/uL (150-450); RED BLOOD COUNT 4.46 10^6/uL (3.72-5.28); RED CELL DISTRIBUTION WIDTH 13.5 % (11.5-14.0); SEGMENTED NEUTROPHILS % (AUTO) 64.8 % (42-78); TOTAL CELLS COUNTED % (AUTO) 100 %; WHITE BLOOD COUNT 8.2 10^3/uL (4.0-10.5)
[2018-12-13 11:44] LABS: ALANINE AMINOTRANSFERASE 32 U/L (9-52); ALBUMIN 4.7 g/dL (3.5-5.0); ALKALINE PHOSPHATASE 72 U/L (38-126); ANION GAP 11 (5-19); ASPARTATE AMINO TRANSFERASE 31 U/L (14-36); BILIRUBIN,DIRECT 0.3 mg/dL (0.0-0.4); BILIRUBIN,TOTAL 0.5 mg/dL (0.2-1.3); BLOOD UREA NITROGEN 21 mg/dL (7-20); CALCIUM 9.6 mg/dL (8.4-10.2); CARBON DIOXIDE 27 mmol/L (22-30); CHLORIDE 103 mmol/L (98-107); GLUCOSE 107 mg/dL (75-110); LIPASE 135.3 U/L (23-300); SODIUM 141.2 mmol/L (137-145); TOTAL PROTEIN 7.7 g/dL (6.3-8.2)
--- NOTE | 2018-12-13 12:19 | RADIOLOGY REPORT (SQ) ---
EXAM DESCRIPTION: CT LTD RENAL STONE PROTOCOL ON COMPLETED DATE/TIME: 12/13/2018 12:02 pm REASON FOR STUDY: flank pain COMPARISON: 2016. TECHNIQUE: CT scan of the abdomen and pelvis performed without intravenous or oral contrast. Images reviewed with lung, soft tissue, and bone windows. Reconstructed coronal and sagittal MPR images revi ewed. All images stored on PACS. All CT scanners at this facility use dose modulation, iterative reconstruction, and/or weight based d osing when appropriate to reduce radiation dose to as low as reasonably achievable (ALARA). [facility]: Dose Right [facility]: CareDose [facility]: Dose Right [facility]: Teradose 4D [facility]: Smart Drivr RADIATION DOSE: CT Rad equipment meets quality standard of care and radiation dose reduction techniq ues were employed. CTDIvol: 6.9 mGy. DLP: 371 mGy-cm.mGy. LIMITATIONS: None. FINDINGS: LOWER CHEST: No significant findings. No nodules or infiltrates. NON-CONTRASTED LIVER, SPLEEN, ADRENALS: Evaluation limited by lack of IV contrast. No identified sign ificant masses. PANCREAS: No masses. No peripancreatic inflammatory changes. GALLBLADDER: Surgically absent. RIGHT KIDNEY AND URETER: No solid masses. No significant calcification. No hydronephrosis or hydroure ter. LEFT KIDNEY AND URETER: Punctate calcifications consistent with nephrolithiasis. Largest stone is in the lower pole and measures 2 mm. No suggestion of significant hydronephrosis. No ureteral stones are detected. This is allowing for calcified phleboliths in the pelvis close to the bladder base on the left. AORTA AND RETROPERITONEUM: No aneurysm. No retroperitoneal masses or adenopathy. BOWEL AND PERITONEAL CAVITY: Moderate stool in the proximal 2/3 of the large bowel. No small bowel d ilatation. No ascites or abnormal gas. APPENDIX: Surgically absent. PELVIS, BLADDER, AND ABDOMINAL WALL:No abnormal masses. No free fluid. Bladder normal. BONES: No significant findings. OTHER: No other significant finding. IMPRESSION: 1. Nonobstructive left nephrolithiasis. 2. No acute or suspicious findings. TECHNICAL DOCUMENTATION: JOB ID: [id number] Quality ID # [id number]: Final reports with documentation of one or more dose reduction techniques (e.g., Au tomated exposure control, adjustment of the mA and/or kV according to patient size, use of iterative reconstruction technique) 2010 [email or web address]- All Rights Reserved Reading location - IP/workstation name: [email or web address]
[2018-12-13] MEDS ORDERED: TRAMADOL HCL 50 MG TABLET PO ONE (12:39)
[2018-12-13 12:50] VITALS: BP 91/65
== END 2018-12-13 12:49 | disposition home or self-care (01) ==
LOC: ER 09:59
DX: R10.9 Unspecified abdominal pain (principal); R35.0 Frequency of micturition; R11.0 Nausea; J45.909 Unspecified asthma, uncomplicated; Z90.49 Acquired absence of other specified parts of digestive tract
CPT/HCPCS: 99284; 96372; 36415; 83690; 85025; 81025; 80053; 81001; 76380; J1885; S0119

== ENCOUNTER → 2019-04-12 | Outpatient (CLI) | payer BC ==
--- NOTE | 2019-04-12 15:58 | WOMENS IMAGING REPORT ---
EXAM DESCRIPTION: 3D SCREENING MAMMO BILAT COMPLETED DATE/TIME: 04/12/2019 8:59 am REASON FOR STUDY: Z12.31 ROUTINE 3D BILATERAL SCREENING Z12.31 ENCNTR SCREEN MAMMOGRAM FOR MALIGNAN T NEOPLASM OF CARMELO COMPARISON: 2011 EXAM PARAMETERS: Views: Standard craniocaudal and mediolateral oblique views of each breast recorded using digital acquisition and breast tomosynthesis. Read with the assistance of CAD. [facility] - R2 [employer] Version 9.2 LIMITATIONS: None. FINDINGS: No suspicious masses, suspicious calcifications or architectural distortion. No areas of c oncern. IMPRESSION: Assessment: Negative MAMMOGRAM. BIRADS 1. BREAST DENSITY: b. There are scattered areas of fibroglandular density. BIRAD: 1 NEGATIVE RECOMMENDATION: ROUTINE SCREENING COMMENT: The patient has been notified of the results by letter per SA requirements. Additional no tification policies are in place for contacting patient with suspicious or incomplete findings. Quality ID #225: The [place] [employer] recommends an annual screening mammogram for women aged 40 years or over. This facility utilizes a reminder system to ensure that all patients receive reminder letters, and/or direct phone calls for appointments. This includes reminders for routine scr eening mammograms, diagnostic mammograms, or other Breast Imaging Interventions when appropriate. Th is patient will be placed in the appropriate reminder system. TECHNICAL DOCUMENTATION: FINDING NUMBER: (1) ASSESSMENT: (1) JOB ID: [id number] [employer]- All Rights Reserved Reading location - IP/workstation name: [email or web address]
== END ==
LOC: WI 08:27
PROVIDERS: ATTEND Nurse Practitioner
DX: Z12.31 Encounter for screening mammogram for malignant neoplasm of breast (principal)
CPT/HCPCS: 77063; 77067

== ENCOUNTER 2020-04-11 10:59 | Emergency (ER) | payer BC ==
[2020-04-11] MEDS ORDERED: ASPIRIN 81 MG TABLET, CHEWABLE PO ONE (11:31)
--- NOTE | 2020-04-11 11:31 | ER Document Report ---
ED Medical Screen (RME) - General Chief Complaint: Chest Pain > 30 Stated Complaint: LEFT LEG PAIN Time Seen by Provider: 04/11/20 11:26 Primary Care Provider: QUINCY LESTER FNP [Primary Care Provider] - Follow up as needed Mode of Arrival: Ambulatory Information source: Patient Notes: 44-year-old female presents to ED for complaint of pain to bilateral flanks and down the left leg. She states the worst pain is to the back of the calf of the left leg. She states she has had a heart attack due to a blood clot in the past she also has diabetes type 2 high cholesterol and chronic back pain. She states she quit smoking when she had her last heart attack. She states she does drink occasionally no street drugs. She is alert oriented respirations regular n onlabored speaking in full sentences. After I completed my interview, she stated that she talked to the nurse line and they recommended getting an EKG because she has had intermittent chest pain. Will get a chest pain work-up. I have greeted and performed a rapid initial assessment of this patient. A comprehensive ED assessment and evaluation of the patient, analysis of test results and completion of medical decision making process will be conducted by an additional ED providers. TRAVEL OUTSIDE OF THE [place] IN LAST 30 DAYS: No - Related Data Allergies/Adverse Reactions: morphine [Morphine] Adverse Reaction (Verified 04/11/20 11:22) Past Medical History - Past Medical History Cardiac Medical History: Reports: Hx Hypercholesterolemia Pulmonary Medical History: Reports: Hx Asthma Neurological Medical History: Reports: Hx Migraine Endocrine Medical History: Reports: Hx Diabetes Mellitus Type 2 - borderline, pre- Renal/ Medical History: Reports: Hx Kidney Stones. Denies: Hx Peritoneal Dialysis GI Medical History: Reports: Hx Gastroesophageal Reflux Disease Psychiatric Medical History: Denies: Hx Bipolar Disorder, Hx Depression Past Surgical History: Reports: Hx Appendectomy - 2009, Hx Cardiac Catheterization, Hx Cholecystectomy - 1999, Hx Nose Surgery - age 16 (sinus), Hx Tubal Ligation - Immunizations Hx Diphtheria, Pertussis, Tetanus Vaccination: Yes Physical Exam - Vital signs Vitals: Temp Pulse Resp BP Pulse Ox 98.0 F 80 18 121/64 99 04/11/20 11:03 04/11/20 11:03 04/11/20 11:03 04/11/20 11:03 04/11/20 11:03 Course - Vital Signs Vital signs: Temp Pulse Resp BP Pulse Ox 98.0 F 80 18 121/64 99 04/11/20 11:03 04/11/20 11:03 04/11/20 11:03 04/11/20 11:03 04/11/20 11:03 Doctor's Discharge - Discharge Referrals: QUINCY LESTER FNP [Primary Care Provider] - Follow up as needed
[2020-04-11 12:08] LABS: ABSOLUTE BASOPHILS # (AUTO) 0.1 10^3/uL (0.0-0.2); ABSOLUTE EOSINOPHILS # (AUTO) 0.5 10^3/uL (0.0-0.6); ABSOLUTE LYMPHOCYTES (AUTO) 2.5 10^3/uL (0.5-4.7); ABSOLUTE MONOCYTES (AUTO) 0.9 10^3/uL (0.1-1.4); ABSOLUTE NEUT (AUTO) 6.5 10^3/uL (1.7-8.2); BASOPHILS % (AUTO) 0.6 % (0-2); EOSINOPHILS % (AUTO) 4.7 % (0-6); HEMATOCRIT 38.6 % (36.0-47.0); HEMOGLOBIN 13.2 g/dL (12.0-15.5); MEAN CORPUSCULAR HEMOGLOBIN 30.8 pg (27.0-33.4); MEAN CORPUSCULAR HGB CONC 34.1 g/dL (32.0-36.0); MEAN CORPUSCULAR VOLUME 90 fl (80-97); MONOCYTES % (AUTO) 8.5 % (3-13); PLATELET COUNT 375 10^3/uL (150-450); RED BLOOD COUNT 4.28 10^6/uL (3.72-5.28); RED CELL DISTRIBUTION WIDTH 14.3 % (11.5-14.0); SEGMENTED NEUTROPHILS % (AUTO) 62.2 % (42-78); TOTAL CELLS COUNTED % (AUTO) 100 %; WHITE BLOOD COUNT 10.4 10^3/uL (4.0-10.5)
[2020-04-11 12:10] LABS: APPEARANCE,URINE CLEAR; BILIRUBIN,URINE NEGATIVE (NEGATIVE); COLOR,URINE COLORLESS; GLUCOSE, URINE >=500 mg/dL (NEGATIVE); KETONES,URINE NEGATIVE (NEGATIVE); LEUKOCYTE ESTERASE,URINE NEGATIVE (NEGATIVE); NITRITE,URINE NEGATIVE (NEGATIVE); PROTEIN,URINE NEGATIVE (NEGATIVE); UROBILINOGEN,URINE NEGATIVE mg/dL (<2.0)
--- NOTE | 2020-04-11 12:31 | RADIOLOGY REPORT (SQ) ---
EXAM DESCRIPTION: CHEST 2 VIEWS IMAGES COMPLETED DATE/TIME: 04/11/2020 12:14 pm REASON FOR STUDY: Intermittent chest pain COMPARISON: PA and lateral views of the chest from 10/19/2017. EXAM PARAMETERS: NUMBER OF VIEWS: Two views. TECHNIQUE: PA and lateral views of the chest were obtained. RADIATION DOSE: NA LIMITATIONS: None. FINDINGS: LUNGS AND PLEURA: No consolidation, pleural effusion or pneumothorax. MEDIASTINUM AND HILAR STRUCTURES: No mediastinal or hilar contour abnormality. HEART AND VASCULAR STRUCTURES: The cardiac silhouette and pulmonary vasculature are within normal menard its. BONES: No acute findings. HARDWARE: Cholecystectomy clips. OTHER: No other finding. IMPRESSION: No acute cardiopulmonary process. TECHNICAL DOCUMENTATION: JOB ID: [id number] 2010 [employer] All Rights Reserved Reading location - IP/workstation name: [email or web address]
[2020-04-11 12:34] LABS: ALBUMIN 4.4 g/dL (3.5-5.0); ALKALINE PHOSPHATASE 76 U/L (38-126); ANION GAP 9 (5-19); ASPARTATE AMINO TRANSFERASE 22 U/L (14-36); BILIRUBIN,TOTAL 0.3 mg/dL (0.2-1.3); BLOOD UREA NITROGEN 14 mg/dL (7-20); CALCIUM 9.7 mg/dL (8.4-10.2); CARBON DIOXIDE 27 mmol/L (22-30); CHLORIDE 100 mmol/L (98-107); GLUCOSE 98 mg/dL (75-110); POTASSIUM 3.9 mmol/L (3.6-5.0); TOTAL PROTEIN 7.5 g/dL (6.3-8.2)
--- NOTE | 2020-04-11 12:41 | RADIOLOGY REPORT (SQ) ---
EXAM DESCRIPTION: CT ABD/PELVIS NO ORAL OR IV IMAGES COMPLETED DATE/TIME: 04/11/2020 12:14 pm REASON FOR STUDY: Pain history of kidney stones COMPARISON: CT of the abdomen pelvis without contrast from 12/13/2018. TECHNIQUE: CT scan of the abdomen and pelvis performed without intravenous or oral contrast. Images reviewed with lung, soft tissue, and bone windows. Reconstructed coronal and sagittal MPR images revi ewed. All images stored on PACS. All CT scanners at this facility use dose modulation, iterative reconstruction, and/or weight based d osing when appropriate to reduce radiation dose to as low as reasonably achievable (ALARA). [facility]: Dose Right [facility]: CareDose [facility]: Dose Right [facility]: Teradose 4D [facility]: Smart [employer] RADIATION DOSE: CT Rad equipment meets quality standard of care and radiation dose reduction techniq ues were employed. CTDIvol: 10.2 mGy. DLP: 533 mGy-cm. LIMITATIONS: None. FINDINGS: LOWER CHEST: No acute findings NON-CONTRASTED LIVER, SPLEEN, ADRENALS: Evaluation is limited due to the absence of intravenous contr ast. There is no evidence hepatic steatosis. The spleen is normal in size. There is no adrenal mas s. PANCREAS: No acute gross abnormality of the pancreas. GALLBLADDER: Status post cholecystectomy. RIGHT KIDNEY AND URETER: Evaluation is limited due to the absence of intravenous contrast. There is no hydronephrosis, nephrolithiasis, hydroureter or ureterolithiasis. LEFT KIDNEY AND URETER: Scattered caliceal calculi that measure up to 3 mm in diameter. There is no associated hydronephrosis, hydroureter or ureterolithiasis. AORTA AND RETROPERITONEUM: No aneurysm of the abdominal aorta. No retroperitoneal adenopathy, hemorr afsaneh or mass. BOWEL AND PERITONEAL CAVITY: No bowel obstruction, bowel wall thickening or pericolonic/ perienteric inflammation. No mesenteric adenopathy, free intraperitoneal fluid or mesenteric/ omental inflammati on. APPENDIX: Status post appendectomy. PELVIS, BLADDER, AND ABDOMINAL WALL:No abdominal wall mass or hernia. No abnormality of the uterus o r adnexa that is apparent on CT. The urinary bladder is contracted. BONES: No fracture or osseous lesion. OTHER: No other finding. IMPRESSION: Left-sided caliceal calculi that measure up to 3 mm in diameter. There is no associated hydronephrosis, hydroureter or ureterolithiasis. COMMENT: Quality ID # 436: Final reports with documentation of one or more dose reduction techniques (e.g., Automated exposure control, adjustment of the mA and/or kV according to patient size, use of iterative reconstruction technique) TECHNICAL DOCUMENTATION: JOB ID: [id number] 2010 [employer]- All Rights Reserved Reading location - IP/workstation name: [email or web address]
[2020-04-11 12:46] LABS: NT PRO BNP 47 pg/mL (<125); TROPONIN I < 0.012 ng/mL
--- NOTE | 2020-04-11 13:19 | RADIOLOGY REPORT (SQ) ---
EXAM DESCRIPTION: VENOUS UNILATERAL LOWER IMAGES COMPLETED DATE/TIME: 04/11/2020 1:10 pm REASON FOR STUDY: Calf pain COMPARISON: None. TECHNIQUE: Dynamic and static estevez scale and color images acquired of the left leg venous system. Se lected spectral images acquired with additional compression and augmentation maneuvers. The contralat eral common femoral vein and saphenofemoral junction were also imaged. Images stored on PACS. LIMITATIONS: None. FINDINGS: COMMON FEMORAL: Normal phasicity, compression and augmentation. No visualized echogenic ma terial on estevez scale. No defects on color images. FEMORAL: Normal compression and augmentation. No visualized echogenic material on estevez scale. No defe cts on color images. POPLITEAL: Normal compression, augmentation. No visualized echogenic material on estevez scale. No defec ts on color images. CALF VESSELS: Normal compression, augmentation. No visualized echogenic material on estevez scale. No de fects on color images. GSV and SSV: Normal compression, augmentation. No visualized echogenic material on estevez scale. No def ects on color images. ANY DEEP VENOUS INSUFFICIENCY: No. ANY EVIDENCE OF POPLITEAL CYST: No. OTHER: No other finding. CONTRALATERAL COMMON FEMORAL VEIN AND SAPHENOFEMORAL JUNCTION: Normal phasicity, compression and augmentation. No visualized echogenic material on estevez scale. No de fects on color images. IMPRESSION: NO EVIDENCE OF DVT OR SVT IN THE LEFT LEG. TECHNICAL DOCUMENTATION: JOB ID: [id number] 2010 [employer]- All Rights Reserved Reading location - IP/workstation name: [email or web address]
--- NOTE | 2020-04-11 13:55 | ER Document Report ---
ED General - General Chief Complaint: Chest Pain > 30 Stated Complaint: LEFT LEG PAIN Time Seen by Provider: 04/11/20 11:26 Primary Care Provider: QUINCY LESTER FNP [Primary Care Provider] - Follow up as needed Mode of Arrival: Ambulatory Information source: Patient, [facility] Records Notes: Patient is a 44-year-old female comes emergency room today with a primary com plaint of low back pain with radiation down both legs. Patient also has a past medical history pertinent for coronary spasms. She also has a history of oral dependent diabetes. Patient does state that she has had some intermittent chest pain but is not an unusual event for her that is not why she is here today. She is primarily here because of the low back pain that seems to be intensified keya e. She denies any recent traumatic events. She does see a pain management doctor but has not seen him in a few months. She has had this back pain for years and states that the last MRI was done approximately 2 years ago. 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 Her primary reason for coming today she is had some pain and discomfort in her left calf and she was afraid that she might be getting a blood clot. She denies having any shortness of breath. As stated she has had her normal intermittent chest discomfort but she is currently taking isosorbide and amlodipine. She currently has no chest pain. Patient stop smoking approx imately 4 years ago. 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 TRAVEL OUTSIDE OF THE [place] IN LAST 30 DAYS: No - HPI Onset: Other - 3 days ago Onset/Duration: Gradual Quality of pain: Dull, Throbbing Severity: Moderate Pain Level: 3 Exacerbated by: Sitting, Standing, Movement, Walking Relieved by: Denies Similar symptoms previously: Yes Recently seen / treated by doctor: No - Related Data Allergies/Adverse Reactions: morphine [Morphine] Adverse Reaction (Verified 04/11/20 11:22) Home Medications: dm. mi. high cholesterol Past Medical History - General Information source: Patient - Social History Smoking Status: Former Smoker Cigarette use (# per day): No Chew tobacco use (# tins/day): No Smoking Education Provided: No Frequency of alcohol use: Occasional Drug Abuse: None Family History: CAD - grandmother- CT at age 40 Patient has homicidal ideation: No - Past Medical History Cardiac Medical History: Reports: Hx Hypercholesterolemia Pulmonary Medical History: Reports: Hx Asthma Neurological Medical History: Reports: Hx Migraine Endocrine Medical History: Reports: Hx Diabetes Mellitus Type 2 - borderline, pre- Renal/ Medical History: Reports: Hx Kidney Stones. Denies: Hx Peritoneal Dialysis GI Medical History: Reports: Hx Gastroesophageal Reflux Disease Psychiatric Medical History: Denies: Hx Bipolar Disorder, Hx Depression Past Surgical History: Reports: Hx Appendectomy - 2009, Hx Cardiac Catheterization, Hx Cholecystectomy - 1999, Hx Nose Surgery - age 16 (sinus), Hx Tubal Ligation - Immunizations Hx Diphtheria, Pertussis, Tetanus Vaccination: Yes Review of Systems - Review of Systems Constitutional: No symptoms reported EENT: No symptoms reported Cardiovascular: See HPI Respiratory: No symptoms reported Gastrointestinal: No symptoms reported Genitourinary: No symptoms reported Female Genitourinary: No symptoms reported Musculoskeletal: Back pain, Joint pain, Muscle pain Skin: No symptoms reported Hematologic/Lymphatic: No symptoms reported Neurological/Psychological: No symptoms reported -: Yes All other systems reviewed and negative Physical Exam - Vital signs Vitals: Temp Pulse Resp BP Pulse Ox 98.0 F 80 18 121/64 99 04/11/20 11:03 04/11/20 11:03 04/11/20 11:03 04/11/20 11:03 04/11/20 11:03 Interpretation: Normal - Notes Notes: PHYSICAL EXAMINATION: GENERAL: Well-appearing, well-nourished and in no acute distress. HEAD: Atraumatic, normocephalic. EYES: Pupils equal round and reactive to light, extraocular movements intact, conjunctiva are normal. ENT: Nares patent, oropharynx clear without exudates. Moist mucous membranes. NECK: Normal range of motion, supple without lymphadenopathy LUNGS: Breath sounds clear to auscultation bilaterally and equal. No wheezes rales or rhonchi. HEART: Regular rate and rhythm without murmurs ABDOMEN: Soft, nontender, nondistended abdomen. No guarding, no rebound. No m asses appreciated. Female : deferred Musculoskeletal: Examination patient's area concern is her low back. In sitting position palpation of patient's left buttocks shows moderate tenderness at the sciatic notch. This does have radiation down the leg when pressure applied. Patient has similar presentation on the right but it is much less pronounced. She has some mild paravertebral tenderness in the lower lumbar spine around L3- L4. Further evaluation with straight leg raises shows negative straight leg raises bilaterally no pain is elicited at maximum. Patient does not display any Homans sign on palpation of her calf. She has good dorsalis pedal pulses and good cap refill in the nailbeds of the toes bilaterally. She also has good DTRs bilaterally. There is no sign of saddle paresthesia. Patient has good sensation from the ankles to the groin and from the outer ankles to the hips. NEUROLOGICAL: Normal speech, normal gait. Normal sensory, motor exams PSYCH: Normal mood, normal affect. SKIN: Warm, Dry, normal turgor, no rashes or lesions noted. Course - Re-evaluation Re-evalutation: 04/11/20 13:57 Patient has outside support with pain management, orthopedics, cardiac, currently she is taking 300 mg of gabapentin 3 times a day however she does state that she misses the middle dosage. Given that we are going to increase her gabapentin to 800 twice daily and we will add some meloxicam as well. Stephanie mary made a comment that she is tried meloxicam in the past and that seems to help. Patient's cardiac work-up was negative for any acute findings. EKG showed no acute changes. - Vital Signs Vital signs: Temp Pulse Resp BP Pulse Ox 98.8 F 80 18 121/64 99 04/11/20 11:23 04/11/20 11:03 04/11/20 11:03 04/11/20 11:03 04/11/20 11:03 - Laboratory Result Diagrams: 04/11/20 11:50 04/11/20 11:50 Laboratory results interpreted by me: 04/11/20 04/11/20 04/11/20 11:45 11:50 11:50 RDW 14.3 H Sodium 136.3 L Urine Glucose (UA) >=500 H Urine Blood SMALL H Discharge - Discharge Clinical Impression: Neuropathy Sciatica Qualifiers: Laterality: bilateral Qualified Code(s): M54.31 - Sciatica, right side; M54.32 - Sciatica, left side Disposition: HOME, SELF-CARE Instructions: Sciatica ([facility]), Neuropathy ([facility]) Additional Instructions: Neuropathy Your symptoms are due to neuropathy. Neuropathy is nerve damage. There are many causes, including diabetes, immune disease, alcohol, blood vessel disease, and vitamin deficiency. The usual symptoms are pain and numbness. Neuropathy can occur anywhere, but it's most likely in the "longest" nerves. That's why the feet are most often affected. Sometimes the nerve damage can heal. But if the symptoms have lasted more than a few months, the damage is permanent. To avoid further damage, treat your underlying health problems carefully. If you have diabetes, keep the blood sugar as normal as possible. Avoid alcohol. Treat high blood pressure and high cholesterol. Treating chronic pain can be a problem. Obviously, you don't want to become addicted to pain medicine. Work closely with your doctor on pain management. Your options include antiinflammatory medicine, anti seizure medicine, antidepressants, and pain clinic management. Contact the doctor if there is a significant change. As we discussed highly recommend follow-up with your pain management/orthopedic doctor for further investigation of the increasing sciatic kind of presentation. Also given that you are only taking 300 of gabapentin 3 times a day but missing the middle dosage list increase you to 800 twice daily. Also we will add some meloxicam since you have indicated that it seemed of helped in the past. Also we discussed also set an appointment with your marine animal trainer for your next appointment. Should you have any concerns or problems or worsening of symptoms return to ER for reexamination and evaluation. Prescriptions: Gabapentin 800 mg PO BID #60 tablet Meloxicam [Mobic] 15 mg PO DAILY #21 tablet Referrals: QUINCY LESTER FNP [Primary Care Provider] - Follow up as needed
[2020-04-11 14:23] VITALS: BP 99/65
--- NOTE | 2020-04-11 15:34 | EKG REPORT ---
SEVERITY:- ABNORMAL ECG - SINUS RHYTHM LEFT ATRIAL ABNORMALITY : Confirmed by: Fernando Uribe MD 11-Apr-2020 15:33:13
== END 2020-04-11 14:21 | disposition home or self-care (01) ==
LOC: ER 10:59
DX: G62.9 Polyneuropathy, unspecified (principal); T42.6X6A Underdosing of other antiepileptic and sedative-hypnotic drugs, initial encounter; Z91.14 Patient's other noncompliance with medication regimen; M54.41 Lumbago with sciatica, right side; M54.42 Lumbago with sciatica, left side; M79.662 Pain in left lower leg; R07.9 Chest pain, unspecified; E78.00 Pure hypercholesterolemia, unspecified; R73.03 Prediabetes; J45.909 Unspecified asthma, uncomplicated; Z79.899 Other long term (current) drug therapy; Z87.891 Personal history of nicotine dependence; Z82.49 Family history of ischemic heart disease and other diseases of the circulatory system
CPT/HCPCS: 36415; 71046; 74176; 80053; 81001; 83880; 84484; 85025; 93005; 93010; 93971; 99284